=== PATIENT | female | born 1940 | race Caucasian/White ===

== ENCOUNTER 2017-12-06 09:28 | Emergency (ER) | payer MEDICARE ==
[~2017-12-06] VITALS: Ht 154.9 cm; Wt 85.2 kg
[~2017-12-06 09:28] MED LIST: ASPI81 PO; GLUCTAB; LISI2.5T3 PO; LOVA10TA; TAB-TAB PO
[2017-12-06 09:45] VITALS: BP 183/78; PULSE 67; RESP 16; TEMP 97.4; O2SAT 99
[2017-12-06] MEDS ORDERED: ASPI-516 CHEW (10:45)
[2017-12-06] MEDS ORDERED: METF500T PO (10:45)
[2017-12-06] MEDS ORDERED: ACETAMINOPHEN/HYDROcodone 325 MG/5 MG TAB PO ONE (10:45)
[2017-12-06] MEDS ORDERED: KETOROLAC TROMETHAMINE 60 MG/2 ML (IM) VIAL IM ONE (10:45)
[2017-12-06] MEDS ORDERED: LEVO100T5 PO (10:45)
[2017-12-06] MEDS ORDERED: LISI20TA PO (10:45)
[2017-12-06] MEDS ORDERED: PRAV10TA PO (10:45)
[2017-12-06] MEDS ORDERED: DEXAMETHASONE SOD PHOS 20 MG/5 ML VIAL IM ONE (10:45)
--- NOTE | 2017-12-06 11:06 | PD ---
HPI Chief Complaint: Musculoskeletal Complaint Time Seen by Provider: 10:30 Travel History International Travel<30 days: No Contact w/Intl Traveler<30days: No Traveled to known affect area: No History of Present Illness HPI 77-year-old female that presents to the ED for evaluation of right upper leg pain. Per patient she developed this around 4:00 yesterday. Per patient she denies any injury or trauma. She does state that she did walk that day but the more than she usually does but she denies any actual injury. Per patient she does walk a lot and per patient she cannot overdid it. She has no history of this in the past. Per patient she noted that the pain is mostly with movement on the right upper leg. She is also noted that the pain seems to be radiating to the buttocks and is sharp. Per patient the pain gets to be 7 out of 10. She denies any injuries or trauma. No recent surgeries. No recent travel. No history of blood clots. No allergies to medication. Has been taking OTC meds without relief. No history of surgeries to the back. PFSH Past Medical History Hx Anticoagulant Therapy: Yes (asa 81mg) Cardiovascular Problems: Yes (htn on meds) High Cholesterol: Yes Diabetes: Yes (type 2) Hypertension: Yes Menopausal: Yes Past Surgical History Appendectomy: Yes (98) Other Surgery: Yes (TONGUE SURGERY 25 YRS AGO) Social History Alcohol Use: No Tobacco Use: No Allergies-Medications (Allergen,Severity, Reaction): Coded Allergies: No Known Allergies (Verified Adverse Reaction, Unknown, 12/06/17) Reported Meds & Prescriptions Reported Meds & Active Scripts Active Hydrocodone-Acetamin 5-325 mg (Hydrocodone/Acetaminophen) 5 Mg-325 Mg Tablet 1 Tab PO Q6HR PRN Prednisone 20 Mg Tab 20 Mg PO BID [address] (Diclofenac Sodium) 75 Mg Tabdr 75 Mg PO BID PRN Reported Levothyroxine (Levothyroxine Sodium) 100 Mcg Tab 100 Mcg PO DAILY Metformin (Metformin HCl) 500 Mg Tab 500 Mg PO DAILY With a meal Lisinopril-Hctz 20-12.5 mg Tab (Lisinopril/Hydrochlorothiazide) 20 Mg-12.5 Mg Tablet 1 Tab PO DAILY Pravastatin 10 Mg Tab Unknown Dose PO DAILY Aspirin 81 Mg Chew 81 Mg CHEW ONCE Review of Systems Except as stated in HPI: all other systems reviewed are Neg Physical Exam Narrative GENERAL: SKIN: Warm and dry. HEAD: Atraumatic. Normocephalic. EYES: Pupils equal and round. No scleral icterus. No injection or drainage. ENT: No nasal bleeding or discharge. Mucous membranes pink and moist. Tongue is midline. No uvula deviation. NECK: Trachea midline. No JVD. CARDIOVASCULAR: Regular rate and rhythm. RESPIRATORY: No accessory muscle use. Clear to auscultation. Breath sounds equal bilaterally. GASTROINTESTINAL: Abdomen soft, non-tender, nondistended. Hepatic and splenic margins not palpable. MUSCULOSKELETAL: Extremities without clubbing, cyanosis, or edema. No obvious deformities. Full range of motion of the upper and lower extremities bilaterally. Patient has significant discomfort with flexion and extension of the right leg around the anterior aspect of the leg. Pain is not reproducible with touch. 2+ pulses bilaterally. No obvious swelling noted. Straight leg test negative. No lumbar, thoracic, cervical spine tenderness to palpation. Neurovascular intact. NEUROLOGICAL: Awake and alert. No obvious cranial nerve deficits. Motor grossly within normal limits. Five out of 5 muscle strength in the arms and legs. Normal speech. PSYCHIATRIC: Appropriate mood and affect; insight and judgment normal. Data Data Last Documented VS Vital Signs Date Time Temp Pulse Resp B/P (MAP) Pulse Ox O2 Delivery O2 Flow Rate FiO2 12/06/17 09:45 97.4 67 16 183/78 (113) 99 Orders Orders Femur (Ap & Lat/2vws) (12/06/17 ) Spine, Lumbar Comp W/Obliq (12/06/17 ) Ketorolac Inj (Toradol Inj) (12/06/17 10:45) Dexamethasone Inj (Decadron Inj) (12/06/17 10:45) Acetamin-Hydrocod 325-5 Mg ([place] 5-325 (12/06/17 10:45) MDM Medical Decision Making Medical Screen Exam Complete: Yes Emergency Medical Condition: Yes Medical Record Reviewed: Yes Interpretation(s) Last Impressions Lumbar Spine X-Ray 12/06/17 0000 Signed Impressions: Service Date/Time: Wednesday, December 06, 2017 10:53 - CONCLUSION: Degenerative changes as described above. Minimal anterolisthesis L4-L5 chronic Pan Verde MD FACR Femur X-Ray 12/06/17 0000 Signed Impressions: Service Date/Time: Wednesday, December 06, 2017 11:02 - CONCLUSION: Negative for fracture or dislocation. Follow up in 7-10 days is suggested if symptoms persist. Pan Verde MD FACR Differential Diagnosis Muscle strain versus muscle spasm versus sciatica versus herniated disc versus fracture Narrative Course 77-year-old female that presents to the ED for evaluation of right leg pain. Patient was properly examined and was found to have signs and symptoms consistent with appears to be muscle strain versus sciatica. Because of patient 's age and body habitus a do recommend imaging to rule out any sign of compression fracture or bony deformity causing the symptoms. Imaging was ordered. Patient was given IM as well PO pain medications. Patient will be reassessed and feels improved. Will give prescriptions for diclofenac sodium, prednisone and lortab. Told to follow up with PCP. See ED if worsening symptoms. Rest. Diagnosis Primary Impression: Sciatica of right side Patient Instructions: General Instructions, Narcotic given in the ED Additional Instructions: Take medications as prescribed. Follow-up with PCP. See ED for any worsening symptoms. Do not drink or drive while taking pain medication. Apply ice or heat as needed for pain Med/Other Pt SpecificInfo: Prescription(s) given Scripts Hydrocodone/Acetaminophen (Hydrocodone-Acetamin 5-325 mg) 5 Mg-325 Mg Tablet 1 TAB PO Q6HR Y for PAIN SCALE 1 TO 10, #12 Prov: Luis Mitchell MD 12/06/17 Prednisone (Prednisone) 20 Mg Tab 20 MG PO BID for 5 Days, #10 TAB 0 Refills Prov: Luis Mitchell MD 12/06/[address] (Diclofenac Sodium DR) 75 Mg Tabdr 75 MG PO BID Y for PAIN SCALE 1 TO 10, #20 TAB 0 Refills Prov: Luis Mitchell MD 12/06/17 Disposition: 01 DISCHARGE HOME Condition: Stable John Marin Dec 06, 2017 11:06
--- NOTE | 2017-12-06 11:17 | RADRPT ---
EXAM DATE/TIME: 12/06/2017 10:53 [facility] COMPARISON: No previous studies available for comparison. INDICATIONS : Sudden onset of low back pain going into right hip, femur area. No known injury MEDICAL HISTORY : None. SURGICAL HISTORY : None. ENCOUNTER: Initial ACUITY: 1 day PAIN SCORE: 10/10 LOCATION: Right low back FINDINGS: There are degenerative changes in the lumbar spine loss of disc space height at L3-4 L4-5 and L5-S1. There is very minimal anterolisthesis of L4 and L5. There moderate degenerative changes of facets. Minimal scoliosis is evident convexity directed towards the right. CONCLUSION: Degenerative changes as described above. Minimal anterolisthesis L4-L5 chronic Pan Verde MD FACR on December 06, 2017 at 11:15 Board Certified Radiologist. This report was verified electronically.
--- NOTE | 2017-12-06 11:18 | RADRPT ---
EXAM DATE/TIME: 12/06/2017 11:02 [facility] COMPARISON: No previous studies available for comparison. INDICATIONS : Sudden onset of right femur pain, no known injury MEDICAL HISTORY : None. SURGICAL HISTORY : None. ENCOUNTER: Initial ACUITY: 1 day PAIN SCORE: 10/10 LOCATION: Right femur FINDINGS: Two view examination of the right femur demonstrates no evidence of fracture or dislocation. Bony mi neralization is normal. The soft tissue structures are intact. CONCLUSION: Negative for fracture or dislocation. Follow up in 7-10 days is suggested if symptoms persist. Pan Verde MD FACR on December 06, 2017 at 11:16 Board Certified Radiologist. This report was verified electronically.
[2017-12-06] MEDS ORDERED: HYDR-3516 PO (11:31)
[2017-12-06] MEDS ORDERED: PRED20 PO (11:31)
[2017-12-06] MEDS ORDERED: DICL75TA PO (11:31)
== END 2017-12-06 12:02 | disposition home or self-care (01) ==
LOC: PHED 09:28
DX: M54.31 Sciatica, right side (principal); I10 Essential (primary) hypertension; E78.00 Pure hypercholesterolemia, unspecified; E11.9 Type 2 diabetes mellitus without complications; Z79.82 Long term (current) use of aspirin; Z79.84 Long term (current) use of oral hypoglycemic drugs
CPT/HCPCS: 72110; 73552; 96372; 99283; J1100; J1885

== ENCOUNTER 2017-12-10 17:09 | Emergency (ER) | payer MEDICARE ==
[~2017-12-10] VITALS: Ht 154.9 cm; Wt 85.6 kg
[~2017-12-10 17:09] MED LIST changes: +ASPI-516 CHEW; -ASPI81 PO; +DICL75TA PO; -GLUCTAB; +HYDR-3516 PO; +LEVO100T5 PO; -LISI2.5T3 PO; +LISI20TA PO; -LOVA10TA; +METF500T PO; +PRAV10TA PO; +PRED20 PO; -TAB-TAB PO
[2017-12-10 17:40] VITALS: BP 146/70; PULSE 64; RESP 16; TEMP 97.2; O2SAT 98
--- NOTE | 2017-12-10 18:17 | PD ---
HPI Chief Complaint: Back/ Neck Pain or Injury Time Seen by Provider: 18:01 Travel History International Travel<30 days: No Contact w/Intl Traveler<30days: No Traveled to known affect area: No History of Present Illness HPI 77-year-old female complains of right leg pain. Patient states that the pain started 5 days ago. Patient states that the pain and cramping pain mostly localized to the anterior aspect of the right thigh area. Patient states that when the pain started 5 days ago also involving the posterior aspect the right hip area with radiation to the right leg. Patient was seen in the emergency room at that time was diagnosed with sciatica. Patient was given Toradol and Decadron IM. Patient was given prescription for diclofenac, prednisone and hydrocodone. Patient states that she has persistent pain despite taking the medication. Patient denies any fever chills. Patient denies any recent injury. Patient states that the pain usually occurs with weightbearing and movement of the right leg. Patient denies any pain at rest. Patient denies any pain now. PFSH Past Medical History Hx Anticoagulant Therapy: Yes (asa 81mg) Cardiovascular Problems: Yes (htn on meds) High Cholesterol: Yes Diabetes: Yes (type 2) Patient Takes Glucophage: Yes Hypertension: Yes ?: Not Menopausal: Yes Past Surgical History Appendectomy: Yes (98) Other Surgery: Yes (TONGUE SURGERY 25 YRS AGO) Social History Alcohol Use: No Tobacco Use: No Substance Use: No Allergies-Medications (Allergen,Severity, Reaction): Coded Allergies: No Known Allergies (Verified Adverse Reaction, Unknown, 12/06/17) Reported Meds & Prescriptions Reported Meds & Active Scripts Active Hydrocodone-Acetamin 5-325 mg (Hydrocodone/Acetaminophen) 5 Mg-325 Mg Tablet 1 Tab PO Q6HR PRN Prednisone 20 Mg Tab 20 Mg PO BID [address] (Diclofenac Sodium) 75 Mg Tabdr 75 Mg PO BID PRN Reported Levothyroxine (Levothyroxine Sodium) 100 Mcg Tab 100 Mcg PO DAILY Metformin (Metformin HCl) 500 Mg Tab 500 Mg PO DAILY With a meal Lisinopril-Hctz 20-12.5 mg Tab (Lisinopril/Hydrochlorothiazide) 20 Mg-12.5 Mg Tablet 1 Tab PO DAILY Pravastatin 10 Mg Tab Unknown Dose PO DAILY Aspirin 81 Mg Chew 81 Mg CHEW ONCE Review of Systems General / Constitutional: No: Fever Eyes: No: Visual changes HENT: No: Headaches Cardiovascular: No: Chest Pain or Discomfort Respiratory: No: Shortness of Breath Gastrointestinal: No: Abdominal Pain Genitourinary: No: Dysuria Musculoskeletal: Positive: Pain Skin: No Rash Neurologic: No: Weakness Psychiatric: No: Depression Endocrine: No: Polydipsia Hematologic/Lymphatic: No: Easy Bruising Physical Exam Narrative GENERAL: Well-nourished, well-developed patient. SKIN: Focused skin assessment warm/dry. HEAD: Normocephalic. EYES: No scleral icterus. No injection or drainage. NECK: Supple, trachea midline. No JVD or lymphadenopathy. CARDIOVASCULAR: Regular rate and rhythm without murmurs, gallops, or rubs. RESPIRATORY: Breath sounds equal bilaterally. No accessory muscle use. GASTROINTESTINAL: Abdomen soft, non-tender, nondistended. MUSCULOSKELETAL: No cyanosis, or edema. BACK: Nontender without obvious deformity. No CVA tenderness. Examination of right leg reveals no redness no swelling no deformity noted the right leg. No tenderness on palpation of the lumbar spine or sciatic notch area. Negative straight leg raising. No tenderness in palpation right thigh. Data Data Last Documented VS Vital Signs Date Time Temp Pulse Resp B/P (MAP) Pulse Ox O2 Delivery O2 Flow Rate FiO2 12/10/17 17:40 97.2 64 16 146/70 (95) 98 Orders Orders Complete Blood Count With Diff (12/10/17 18:08) Comprehensive Metabolic Panel (12/10/17 18:08) Creatine Kinase (Cpk) (12/10/17 18:08) Iv Access Insert/Monitor (12/10/17 18:08) Ct Lumb Spine W/O Contrast (12/10/17 18:08) Us Leg Venous Doppler (12/10/17 18:08) Labs Laboratory Tests Test 12/10/17 19:14 White Blood Count 7.8 TH/MM3 Red Blood Count 5.41 MIL/MM3 Hemoglobin 14.5 GM/DL Hematocrit 44.0 % Mean Corpuscular Volume 81.4 FL Mean Corpuscular Hemoglobin 26.8 PG Mean Corpuscular Hemoglobin Concent 32.9 % Red Cell Distribution Width 14.8 % Platelet Count 252 TH/MM3 Mean Platelet Volume 8.0 FL Neutrophils (%) (Auto) 63.3 % Lymphocytes (%) (Auto) 28.1 % Monocytes (%) (Auto) 6.6 % Eosinophils (%) (Auto) 1.5 % Basophils (%) (Auto) 0.5 % Neutrophils # (Auto) 5.0 TH/MM3 Lymphocytes # (Auto) 2.2 TH/MM3 Monocytes # (Auto) 0.5 TH/MM3 Eosinophils # (Auto) 0.1 TH/MM3 Basophils # (Auto) 0.0 TH/MM3 CBC Comment DIFF FINAL Differential Comment Blood Urea Nitrogen 17 MG/DL Creatinine 0.74 MG/DL Random Glucose 90 MG/DL Total Protein 7.4 GM/DL Albumin 4.0 GM/DL Calcium Level 8.8 MG/DL Alkaline Phosphatase 64 U/L Aspartate Amino Transf (AST/SGOT) 8 U/L Alanine Aminotransferase (ALT/SGPT) 19 U/L Total Bilirubin 0.6 MG/DL Sodium Level 130 MEQ/L Potassium Level 3.9 MEQ/L Chloride Level 94 MEQ/L Carbon Dioxide Level 27.2 MEQ/L Anion Gap 9 MEQ/L Estimat Glomerular Filtration Rate 76 ML/MIN Total Creatine Kinase 39 U/L MDM Medical Decision Making Medical Screen Exam Complete: Yes Emergency Medical Condition: Yes Interpretation(s) Last Impressions Lumbar Spine CT 12/10/171807 Signed Impressions: Service Date/Time: December 18:26 - CONCLUSION: 1. No evidence of acute fracture. 2. Multilevel disc disease L2-S1, worst at the L4-5 level where there is a grade 1 anterolisthesis. Ty Saenz MD Lower Extremity Ultrasound 12/10/171807 Signed Impressions: Service Date/Time: December 18:39 - CONCLUSION: 1. Negative for deep venous thrombosis. Ty Saenz MD 9 PM. CBC within normal limits. CMP within normal limits. Sodium 130. Differential Diagnosis Differential diagnosis including muscular spasm, sciatica, myositis, DVT. Narrative Course 77-year-old female with persistent right leg pain. Brachial blood pressure 156/ 75. Ankle Blood pressure 185/78. Diagnosis Primary Impression: Muscle spasm of right leg Patient Instructions: General Instructions Additional Instructions: Take medication as needed for pain. Follow-up with personal physician and orthopedist. Return if worse. Med/Other Pt SpecificInfo: Prescription(s) given Scripts Tramadol (Ultram) 50 Mg Tab 50 MG PO Q6H Y for PAIN, #20 TAB 0 Refills Prov: Paul Mendoza MD 12/10/17 Methocarbamol (Robaxin) 750 Mg Tab 750 MG PO QID for Muscle Spasm, #60 TAB 0 Refills Prov: Paul Mendoza MD 12/10/17 Disposition: 01 DISCHARGE HOME Condition: Stable Paul Mendoza MD Dec 10, 2017 18:17
--- NOTE | 2017-12-10 19:12 | RADRPT ---
EXAM DATE/TIME: 12/10/2017 18:26 [facility] COMPARISON: FEMUR RIGHT (AP & LAT/2VWS), December 06, 2017, 11:02. SPINE LUMBAR COMPLETE W/OBLIQ, December 06, 2017, 1 0:53. INDICATIONS : Low back pain with radiculopathy down right leg to knee. RADIATION DOSE: 39.89 CTDIvol (mGy) MEDICAL HISTORY : Hypertension. Diabetes mellitus type 2. SURGICAL HISTORY : Appendectomy. ENCOUNTER: Initial ACUITY: 4 - 6 days PAIN SCALE: 10/10 LOCATION: Right Lumbar spine. TECHNIQUE: Volumetric scanning of the lumbar spine was performed. Multiplanar reconstructions in the sagittal, coronal and oblique axial planes were performed. Using automated exposure control and adjustment of the mA and/or kV according to patient size, radiation dose was kept as low as reasonably achievable t o obtain optimal diagnostic quality images. DICOM format image data is available electronically for review and comparison. FINDINGS: There is mild anterolisthesis of L4 with defect at L5. Sclerosis and narrowing of the posterior inte rspace at L3-4. Vacuum phenomenon in the mildly narrowed L5-S1 interspace. No evidence of acute fra cture. The posterior elements are in normal alignment with moderate severity hypertrophic facet join t hypertrophy from L2-S1. T12-L1: The thecal sac has a normal diameter. No evidence of disc bulge or protrusion. The neural foramina are patent bilaterally. L1-L2: The thecal sac has a normal diameter. No evidence of disc bulge or protrusion. The neural foramina are patent bilaterally. L2-L3: Broad-based bulging of the disc, slightly more prominent left paracentral than right causing flatteni ng of the ventral margin of the thecal sac. The neural foramen is patent. L3-L4: Broad-based bulging of the disc flattens the ventral margin of the thecal sac. Mild narrowing of the bony neural foramina due to facet joint hypertrophy. L4-L5: Anterolisthesis with broad-based bulging or protrusion of the disc flattening the ventral margin of t he thecal sac. AP dimension of the thecal sac measures 8 mm on its severity hypertrophic changes in the facet joints with vacuum phenomenon on the right side. L5-S1: Mild bulging of the disc without significant deformity of the thecal sac. CONCLUSION: 1. No evidence of acute fracture. 2. Multilevel disc disease L2-S1, worst at the L4-5 level where there is a grade 1 anterolisthesis. Ty Saenz MD on December 10, 2017 at 19:06 Board Certified Radiologist. This report was verified electronically.
--- NOTE | 2017-12-10 19:13 | RADRPT ---
EXAM DATE/TIME: 12/10/2017 18:39 [facility] COMPARISON: No previous studies available for comparison. INDICATIONS : Right leg pain. MEDICAL HISTORY : Hypercholesterolemia. Hypertension. Diabetic. SURGICAL HISTORY : Appendectomy. ENCOUNTER: Initial ACUITY: 4 - 6 days PAIN SCORE: 6/10 LOCATION: Right leg. TECHNIQUE: Venous ultrasound of the leg was performed from the inguinal ligament to the proximal calf. Real-rufus e, color Doppler and spectral tracing, compression and augmentation techniques were used. FINDINGS: There is normal compressibility of the deep venous system from the inguinal region to the proximal ca lf. No echogenic clot is seen in the lumen of the common femoral, femoral, popliteal, and posterior tibial veins. There is a normal response of the venous system to proximal and distal augmentation an d respiration. CONCLUSION: 1. Negative for deep venous thrombosis. Ty Saenz MD on December 10, 2017 at 19:12 Board Certified Radiologist. This report was verified electronically.
[2017-12-10 19:19] LABS: BASOPHIL % 0.5 % (0.0-2.0); EOSINOPHIL # 0.1 TH/MM3 (0-0.4); EOSINOPHIL % 1.5 % (0.0-4.0); HEMOGLOBIN 14.5 GM/DL (11.6-15.3); LYMPH % 28.1 % (9.0-44.0); LYMPHOCYTE # 2.2 TH/MM3 (1.0-4.8); MEAN CELL VOLUME 81.4 FL (80.0-100.0); MEAN CORPUSCULAR HEMOGLOBIN 26.8 PG (27.0-34.0); MEAN CORPUSCULAR HGB CONC 32.9 % (32.0-36.0); MONO % 6.6 % (0.0-8.0); MONOCYTE # 0.5 TH/MM3 (0-0.9); NEUT % 63.3 % (16.0-70.0); PLATELET COUNT 252 TH/MM3 (150-450); RED BLOOD COUNT 5.41 MIL/MM3 (4.00-5.30); RED CELL DISTRIBUTION WIDTH 14.8 % (11.6-17.2); WHITE BLOOD COUNT 7.8 TH/MM3 (4.0-11.0)
[2017-12-10 19:26] LABS: CHLORIDE 94 MEQ/L (98-107); SODIUM (NA) 130 MEQ/L (136-145)
[2017-12-10 19:30] LABS: BICARBONATE 27.2 MEQ/L (21.0-32.0); BLOOD UREA NITROGEN 17 MG/DL (7-18); CALCIUM 8.8 MG/DL (8.5-10.1); GLUCOSE,RANDOM 90 MG/DL (74-106)
[2017-12-10 19:33] LABS: ALT (GPT) 19 U/L (10-53); AST (GOT) 8 U/L (15-37); CREATININE 0.74 MG/DL (0.50-1.00); GLOMERULAR FILTRATION RATE 76 ML/MIN (>89)
[2017-12-10 19:35] LABS: TOTAL BILIRUBIN ADULT 0.6 MG/DL (0.2-1.0); TOTAL PROTEIN 7.4 GM/DL (6.4-8.2)
[2017-12-10 19:36] LABS: ALKALINE PHOSPHATASE 64 U/L (45-117)
[2017-12-10] MEDS ORDERED: ROBA750T PO (19:56)
[2017-12-10] MEDS ORDERED: TRAM50 PO (19:56)
== END 2017-12-10 20:17 | disposition home or self-care (01) ==
LOC: PHEFT 17:09
DX: M62.838 Other muscle spasm (principal); I10 Essential (primary) hypertension; E78.00 Pure hypercholesterolemia, unspecified; E11.9 Type 2 diabetes mellitus without complications; Z79.84 Long term (current) use of oral hypoglycemic drugs; Z79.82 Long term (current) use of aspirin; Z79.899 Other long term (current) drug therapy
CPT/HCPCS: 72131; 80053; 82550; 85025; 93971; 99285